=== PATIENT | female | born 1960 | race Caucasian/White ===

== ENCOUNTER 2018-09-26 08:44 | Emergency (ER) | payer OTHER ==
[~2018-09-26] VITALS: Ht 167.6 cm; Wt 71.2 kg
[~2018-09-26 08:44] MED LIST: CARAFATE SU1 G/10 ML PO; KLONOPIN1 MG/TAB; LEVSIN/SL0.125 MG PO; LEXAPRO5 MG; PREVACID30 MG PO; RESTORIL15 M1; WELLBUTRIN75 MG
[2018-09-26] MEDS ORDERED: PEMPRO (08:52)
== END 2018-09-26 13:24 | disposition home or self-care (01) ==
LOC: ER 08:44
DX: R30.0 Dysuria (principal); N39.0 Urinary tract infection, site not specified

== ENCOUNTER 2019-09-18 12:05 | Emergency (ER) | payer OTHER ==
[~2019-09-18] VITALS: Ht 167.6 cm; Wt 71.2 kg
[~2019-09-18 12:05] MED LIST changes: +PEMPRO
[2019-09-18] MEDS ORDERED: PROMETRIUM200 MG (12:15)
== END 2019-09-18 13:09 | disposition home or self-care (01) ==
LOC: ER 12:05
DX: F06.4 Anxiety disorder due to known physiological condition (principal)